=== PATIENT | female | born 1980 | race Caucasian/White ===

== ENCOUNTER 2018-06-21 10:07 | Emergency (ER) | payer OTHER ==
[2018-06-21] MEDS ORDERED: NORMAL SALINE 1000 ML 1,000 ML IV ONE (11:28)
[2018-06-21] MEDS ORDERED: ONDANSETRON HCL INJ/PF 4 MG/2 ML SDV IV ONE (11:29)
--- NOTE | 2018-06-21 11:30 | ER Document Report ---
ED Medical Screen (RME) - General Chief Complaint: Abdominal Pain Stated Complaint: VOMITING Time Seen by Provider: 06/21/18 11:28 Mode of Arrival: Ambulatory Information source: Patient, Relative TRAVEL OUTSIDE OF THE [place] IN LAST 30 DAYS: No - HPI Patient complains to provider of: abd pain; vomiting Onset: Yesterday - pt with onset of abd pain and vomiting since last pm - Related Data Allergies/Adverse Reactions: No Known Allergies Allergy (Unverified 06/21/18 10:18) Past Medical History - Social History Chew tobacco use (# tins/day): No Frequency of alcohol use: Occasional Drug Abuse: None Renal/ Medical History: Denies: Hx Peritoneal Dialysis Physical Exam - Vital signs Vitals: Temp Pulse Resp BP Pulse Ox 98.2 F 76 18 119/66 100 06/21/18 10:24 06/21/18 10:24 06/21/18 10:24 06/21/18 10:24 06/21/18 10:24 Course - Vital Signs Vital signs: Temp Pulse Resp BP Pulse Ox 98.2 F 76 16 119/66 100 06/21/18 10:24 06/21/18 10:24 06/21/18 11:24 06/21/18 10:24 06/21/18 10:24
[2018-06-21 12:37] LABS: ABSOLUTE BASOPHILS # (AUTO) 0.1 10^3/uL (0.0-0.2); ABSOLUTE LYMPHOCYTES (AUTO) 1.5 10^3/uL (0.5-4.7); ABSOLUTE MONOCYTES (AUTO) 0.5 10^3/uL (0.1-1.4); ABSOLUTE NEUT (AUTO) 10.2 10^3/uL (1.7-8.2); BASOPHILS % (AUTO) 0.8 % (0-2); EOSINOPHILS % (AUTO) 0.3 % (0-6); HEMATOCRIT 42.9 % (36.0-47.0); HEMOGLOBIN 14.8 g/dL (12.0-15.5); LYMPHOCYTES % (AUTO) 12.3 % (13-45); MEAN CORPUSCULAR HEMOGLOBIN 33.2 pg (27.0-33.4); MEAN CORPUSCULAR HGB CONC 34.4 g/dL (32.0-36.0); MEAN CORPUSCULAR VOLUME 96 fl (80-97); MONOCYTES % (AUTO) 3.8 % (3-13); PLATELET COUNT 246 10^3/uL (150-450); RED BLOOD COUNT 4.45 10^6/uL (3.72-5.28); RED CELL DISTRIBUTION WIDTH 13.9 % (11.5-14.0); SEGMENTED NEUTROPHILS % (AUTO) 82.8 % (42-78); TOTAL CELLS COUNTED % (AUTO) 100 %; WHITE BLOOD COUNT 12.4 10^3/uL (4.0-10.5)
[2018-06-21 12:40] LABS: ALANINE AMINOTRANSFERASE 31 U/L (9-52); ALBUMIN 4.6 g/dL (3.5-5.0); ALKALINE PHOSPHATASE 64 U/L (38-126); ANION GAP 10 (5-19); ASPARTATE AMINO TRANSFERASE 27 U/L (14-36); BILIRUBIN,DIRECT 0.3 mg/dL (0.0-0.4); BILIRUBIN,TOTAL 0.6 mg/dL (0.2-1.3); BLOOD UREA NITROGEN 16 mg/dL (7-20); CALCIUM 9.7 mg/dL (8.4-10.2); CARBON DIOXIDE 27 mmol/L (22-30); CHLORIDE 103 mmol/L (98-107); GLUCOSE 89 mg/dL (75-110); SODIUM 139.8 mmol/L (137-145); TOTAL PROTEIN 8.1 g/dL (6.3-8.2)
--- NOTE | 2018-06-21 12:44 | ER Document Report ---
ED GI/ - General Chief Complaint: Abdominal Pain Stated Complaint: VOMITING Time Seen by Provider: 06/21/18 11:28 Mode of Arrival: Ambulatory Notes: 37-year-old female patient emergency department chief complaint of nausea and vomiting. Patient states that she woke up this morning and has been vomiting all day. Denies any abdominal pain. No diarrhea. No fever. No other major issues at this time. TRAVEL OUTSIDE OF THE [place] IN LAST 30 DAYS: No - HPI Patient complains to provider of: Vomiting Onset: Just prior to arrival Timing/Duration: Sudden, Constant Quality of pain: No pain Severity at maximum: Moderate Severity in ED: Moderate Pain Level: 0 - Related Data Allergies/Adverse Reactions: No Known Allergies Allergy (Unverified 06/21/18 10:18) Past Medical History - General Information source: Patient, Relative - Social History Smoking Status: Current Every Day Smoker Chew tobacco use (# tins/day): No Frequency of alcohol use: Occasional Drug Abuse: None Lives with: Family Family History: Reviewed & Not Pertinent Patient has suicidal ideation: No Patient has homicidal ideation: No - Medical History Medical History: Negative Renal/ Medical History: Denies: Hx Peritoneal Dialysis Review of Systems - Review of Systems Notes: Constitutional: denies: Chills, Diaphoresis, Fever, Malaise, Weakness EENT: denies: Eye discharge, Blurred vision, Tearing, Double vision, Nose congestion, Nose discharge, Throat swelling, Mouth pain Cardiovascular: denies: Palpitations, Heart racing, Orthopnea, Dyspnea, Chest pain Respiratory: denies: Cough, Hurts to breathe, Wheezing, Shortness of breath Gastrointestinal: denies: Abdominal pain, Diarrhea,Black stools, bright red blood in stool. + nausea and vomiting Genitourinary: denies: Burning, Dysuria, Discharge, Frequency, Flank pain, Hematuria Musculoskeletal: denies: Joint pain, Joint swelling, Muscle pain, Muscle stiffness, back pain Hematologic/Lymphatic: denies: Anemia, Easy bleeding, Easy bruising, Blood clots Neurological/Psychological: denies: Confusion, Dementia, Depression, Loss of consciousness Skin: No lesions, no masses, no skin breakdown, no abscesses Physical Exam - Vital signs Vitals: Temp Pulse Resp BP Pulse Ox 98.2 F 76 18 119/66 100 06/21/18 10:24 06/21/18 10:24 06/21/18 10:24 06/21/18 10:24 06/21/18 10:24 Interpretation: Normal - General General appearance: Appears well, Alert - HEENT Head: Normocephalic, Atraumatic Eyes: Normal Pupils: PERRL - Respiratory Respiratory status: No respiratory distress Chest status: Nontender Breath sounds: Normal Chest palpation: Normal - Cardiovascular Rhythm: Regular Heart sounds: Normal auscultation Murmur: No - Abdominal Inspection: Normal Distension: No distension Bowel sounds: Normal Tenderness: Nontender Organomegaly: No organomegaly - Back Back: Normal, Nontender - Extremities General upper extremity: Normal inspection, Nontender, Normal color, Normal ROM, Normal temperature General lower extremity: Normal inspection, Nontender, Normal color, Normal ROM, Normal temperature, Normal weight bearing. No: Tawanda's sign - Neurological Neuro grossly intact: Yes Cognition: Normal Orientation: AAOx4 [place] Coma Scale Eye Opening: Spontaneous [place] Coma Scale Verbal: Oriented [place] Coma Scale Motor: Obeys Commands [place] Coma Scale Total: 15 Speech: Normal Motor strength normal: LUE, RUE, LLE, RLE Sensory: Normal - Psychological Associated symptoms: Normal affect, Normal mood - Skin Skin Temperature: Warm Skin Moisture: Dry Skin Color: Normal Course - Re-evaluation Re-evalutation: 06/21/18 13:47 Laboratory 06/21/18 06/21/18 06/21/18 11:55 11:55 12:50 WBC 12.4 H RBC 4.45 Hgb 14.8 Hct 42.9 MCV 96 MCH 33.2 MCHC 34.4 RDW 13.9 Plt Count 246 Seg Neutrophils % 82.8 H Lymphocytes % 12.3 L Monocytes % 3.8 Eosinophils % 0.3 Basophils % 0.8 Absolute Neutrophils 10.2 H Absolute Lymphocytes 1.5 Absolute Monocytes 0.5 Absolute Eosinophils 0.0 Absolute Basophils 0.1 Sodium 139.8 Potassium 4.0 Chloride 103 Carbon Dioxide 27 Anion Gap 10 BUN 16 Creatinine 0.59 Est GFR ( Amer) > 60 Est GFR (Non-Af Amer) > 60 Glucose 89 Calcium 9.7 Total Bilirubin 0.6 Direct Bilirubin 0.3 Neonat Total Bilirubin Not Reportable Neonat Direct Bilirubin Not Reportable Neonat Indirect Bili Not Reportable AST 27 ALT 31 Alkaline Phosphatase 64 Total Protein 8.1 Albumin 4.6 Lipase 64.0 Urine Color YELLOW Urine Appearance SLIGHTLY-CLOUDY Urine pH 9.0 Ur Specific [place] 1.023 Urine Protein 100 H Urine Glucose (UA) NEGATIVE Urine Ketones NEGATIVE Urine Blood NEGATIVE Urine Nitrite NEGATIVE Urine Bilirubin NEGATIVE Urine Urobilinogen 2.0 H Ur Leukocyte Esterase NEGATIVE Urine WBC (Auto) 1 Urine RBC (Auto) 2 U Hyaline Cast (Auto) 3 Squamous Epi Cells Auto 10 Urine Mucus (Auto) MANY Urine Ascorbic Acid NEGATIVE Urine HCG, Qual NEGATIVE Patient has received some fluids here. Zofran. No more than vomiting. No pain in the abdomen. Slightly elevated WBC count. Patient does smoke a lot of marijuana. I have advised that this could be causing her vomiting. At this time will discharge her in stable condition with some Zofran. Return for any worsening symptoms especially next 24 hours if she develops any worsening pain - Vital Signs Vital signs: Temp Pulse Resp BP Pulse Ox 98.4 F 65 15 107/63 100 06/21/18 13:59 06/21/18 13:59 06/21/18 13:59 06/21/18 13:59 06/21/18 10:24 - Laboratory Result Diagrams: 06/21/18 11:55 06/21/18 11:55 Laboratory results interpreted by me: 06/21/18 06/21/18 11:55 12:50 WBC 12.4 H Seg Neutrophils % 82.8 H Lymphocytes % 12.3 L Absolute Neutrophils 10.2 H Urine Protein 100 H Urine Urobilinogen 2.0 H Discharge - Discharge Clinical Impression: Vomiting Qualifiers: Vomiting type: unspecified Vomiting Intractability: non-intractable Nausea presence: with nausea Qualified Code(s): R11.2 - Nausea with vomiting, unspecified Condition: Good Disposition: HOME, SELF-CARE Instructions: Vomiting ([facility]) Additional Instructions: In the event that you develop any abdominal pain, worsening symptoms, uncontrolled vomiting or other concerns please return. We have given you a prescription for some nausea medicine. Use this as needed. If your symptoms get worse the next 24 hours please return. Prescriptions: Ondansetron [Zofran Odt 4 mg Tablet] 1 - 2 tab PO Q4H PRN 5 Days #15 tab.rapdis PRN Reason: For Nausea/Vomiting Forms: Return to Work
[2018-06-21 13:25] LABS: APPEARANCE,URINE SLIGHTLY-CLOUDY; BILIRUBIN,URINE NEGATIVE (NEGATIVE); COLOR,URINE YELLOW; GLUCOSE, URINE NEGATIVE (NEGATIVE); KETONES,URINE NEGATIVE (NEGATIVE); LEUKOCYTE ESTERASE,URINE NEGATIVE (NEGATIVE); NITRITE,URINE NEGATIVE (NEGATIVE); PROTEIN,URINE 100 mg/dL (NEGATIVE); URINE SPECIFIC GRAVITY 1.023
[2018-06-21 14:02] VITALS: BP 107/63
--- NOTE | 2018-06-21 20:55 | EKG REPORT ---
SEVERITY:- OTHERWISE NORMAL ECG - SINUS RHYTHM BORDERLINE RIGHT AXIS DEVIATION : Confirmed by: Ashleigh Solano MD 21-Jun-2018 20:54:20
== END 2018-06-21 14:05 | disposition home or self-care (01) ==
LOC: ER 10:07
DX: R11.2 Nausea with vomiting, unspecified (principal); F17.200 Nicotine dependence, unspecified, uncomplicated; D72.829 Elevated white blood cell count, unspecified
CPT/HCPCS: 93005; 99283; 96361; 96374; 36415; 83690; 85025; 81025; 80053; 81001; 93010; J2405; J7030